=== PATIENT | female | born 1985 | race Caucasian/White ===

== ENCOUNTER 2018-09-09 13:17 | Emergency (ER) | payer OTHER ==
[~2018-09-09] VITALS: Ht 152.4 cm; Wt 86.0 kg
[~2018-09-09 13:17] MED LIST: VIC
[2018-09-09 13:45] VITALS: BP 121/72
[2018-09-09] MEDS ORDERED: ONDANSETRON HCL 4MG/2ML INJ IV STA (13:46)
[2018-09-09] MEDS ORDERED: SODIUM CHLORIDE 0.9% 1,000 ML IV ONE (13:46)
[2018-09-09] MEDS ORDERED: KETOROLAC 30MG/ML VIAL IV ONE (14:00)
[2018-09-09] MEDS ORDERED: FAMOTIDINE 20MG/2ML VIAL IV ONE (14:00)
[2018-09-09 14:21] LABS: BASOPHILS % 0.3 % (0.0-2.0); EOSINOPHILS % 0.4 % (0.0-5.0); HEMATOCRIT. 39.4 % (36.0-48.0); HEMOGLOBIN. 13.5 g/dL (12.0-16.0); LYMPHOCYTES % 14.8 % (20.0-50.0); MEAN CORPUSCULAR HEMOGLOBIN 29.1 pg (28.0-32.0); MEAN CORPUSCULAR VOLUME 84.8 fL (81.0-99.0); NEUTROPHILS % 79.5 % (40.0-76.0); PLATELET 347 x1000/uL (130-400); RED BLOOD CELL COUNT 4.65 mill/uL (4.2-5.4); RED CELL DISTRIBUTION WIDTH 14.1 % (11.6-14.6)
[2018-09-09 14:28] LABS: CHLORIDE 111 mEq/L (98-107)
[2018-09-09 14:32] LABS: ETHANOL BLOOD 74 mg/dL
== END 2018-09-09 17:17 | disposition home or self-care (01) ==
LOC: ER 13:38
DX: S93.401A Sprain of unspecified ligament of right ankle, initial encounter (principal); F10.10 Alcohol abuse, uncomplicated; Z90.89 Acquired absence of other organs; Z98.890 Other specified postprocedural states; X58.XXXA Exposure to other specified factors, initial encounter; Y93.89 Activity, other specified; Y92.89 Other specified places as the place of occurrence of the external cause; Y99.8 Other external cause status; Y90.3 Blood alcohol level of 60-79 mg/100 ml
CPT/HCPCS: 36415; 73600; 80053; 81025; 85025; 96361; 96374; 96375; 99285; G0482; J1885; J2405; J3490; J7030

== ENCOUNTER 2019-08-27 13:10 | Emergency (ER) | payer OTHER ==
[~2019-08-27] VITALS: Ht 152.4 cm; Wt 80.0 kg
[2019-08-27 13:30] VITALS: BP 112/62
[2019-08-27] MEDS ORDERED: KETOROLAC 30MG/ML VIAL IM ONE (15:30)
[2019-08-27] MEDS ORDERED: ACETAMINOPHEN 500MG TABLET PO ONE (15:30)
[2019-08-27] MEDS ORDERED: HYDROCODONE/ACETAMINOPHEN 5/325MG TABLET PO ONE (17:00)
== END 2019-08-27 17:24 | disposition home or self-care (01) ==
LOC: ER 13:10
DX: M54.41 Lumbago with sciatica, right side (principal); Z98.890 Other specified postprocedural states; Z90.49 Acquired absence of other specified parts of digestive tract
CPT/HCPCS: 72100; 81025; 96372; 99283; J1885